=== PATIENT | male | born 1950 | race Caucasian/White ===

== ENCOUNTER 2017-04-05 05:55 | Day surgery (SDC) | payer OTHER ==
[~2017-04-05 05:55] MED LIST: LIDOCAINE W/ SODIUM BICARB 0.5 ML SYR ONE; Lactated Ringers 1,000 ML PRIMARY IV ONE
[2017-04-05] MEDS ORDERED: MIDAZOLAM 5 MG/1 ML IV ONE (06:15)
[2017-04-05] MEDS ORDERED: fentaNYL Inj 100 MCG/2 ML VIAL IVP ONE (06:15)
[2017-04-05 09:02] VITALS: RESP 16; TEMP 98
== END 2017-04-05 09:08 | disposition home or self-care (01) ==
LOC: SDSC 05:55
PROVIDERS: ATTEND Ophthalmology
DX: H25.12 Age-related nuclear cataract, left eye (principal)
CPT/HCPCS: 66984; J3010; J2250; J7120